=== PATIENT | female | born 1950 | race Caucasian/White ===

== ENCOUNTER 2024-02-19 00:43 | Emergency (ER) | payer MEDICARE, OTHER ==
[~2024-02-19] VITALS: Ht 162.6 cm; Wt 69.9 kg
[2024-02-19] MEDS ORDERED: RABIES IMMUNE GLOBULIN/PF 300 UNIT/ML 2 ML VIAL IM ONE (01:47)
[2024-02-19] MEDS ORDERED: RABIES VACCINE (PCEC)/PF 2.5 UNIT ML IM ONE (01:48)
[2024-02-19] MEDS: RABIES IMMUNE GLOBULIN/PF 300 UNIT/ML 2 ML VIAL IM ONE (02:03)
[2024-02-19] MEDS: RABIES VACCINE (PCEC)/PF 2.5 UNIT ML IM ONE (02:03)
[2024-02-19 02:08] VITALS: BP 145/66; TEMP 98.5; O2SAT 98
== END 2024-02-19 02:08 | disposition home or self-care (01) ==
LOC: ER 01:06
DX: Z23 Encounter for immunization (principal); R03.0 Elevated blood-pressure reading, without diagnosis of hypertension; Z98.890 Other specified postprocedural states; Z88.1 Allergy status to other antibiotic agents
CPT/HCPCS: 90376; A4606; A4663

== ENCOUNTER 2024-02-21 15:46 | Emergency (ER) | payer MEDICARE, OTHER ==
[~2024-02-21] VITALS: Ht 162.6 cm; Wt 69.9 kg
[2024-02-21] MEDS ORDERED: RABIES VACCINE (PCEC)/PF 2.5 UNIT ML IM ONE (16:25)
[2024-02-21] MEDS: RABIES VACCINE (PCEC)/PF 2.5 UNIT ML IM ONE (16:32)
[2024-02-21 16:33] VITALS: BP 132/74; TEMP 98.2; O2SAT 97
== END 2024-02-21 16:34 | disposition home or self-care (01) ==
LOC: ER 15:49
DX: Z23 Encounter for immunization (principal); Z98.890 Other specified postprocedural states; Z88.1 Allergy status to other antibiotic agents
CPT/HCPCS: A4606; A4663

== ENCOUNTER 2024-02-25 14:53 | Emergency (ER) | payer MEDICARE, OTHER ==
[~2024-02-25] VITALS: Ht 162.6 cm; Wt 69.9 kg
[2024-02-25] MEDS ORDERED: RABIES VACCINE (PCEC)/PF 2.5 UNIT ML IM ONE (14:59)
[2024-02-25 15:01] VITALS: O2SAT 99
[2024-02-25] MEDS: RABIES VACCINE (PCEC)/PF 2.5 UNIT ML IM ONE (15:09)
== END 2024-02-25 15:14 | disposition home or self-care (01) ==
LOC: ER 14:53
DX: Z23 Encounter for immunization (principal); Z98.890 Other specified postprocedural states; Z88.1 Allergy status to other antibiotic agents
CPT/HCPCS: A4606; A4663

== ENCOUNTER 2024-03-03 21:40 | Emergency (ER) | payer MEDICARE, OTHER ==
[~2024-03-03] VITALS: Ht 162.6 cm; Wt 68.0 kg
[2024-03-03] MEDS ORDERED: RABIES VACCINE (PCEC)/PF 2.5 UNIT ML IM ONE (22:44)
[2024-03-03] MEDS: RABIES VACCINE (PCEC)/PF 2.5 UNIT ML IM ONE (23:03)
[2024-03-03 23:10] VITALS: BP 129/70; O2SAT 98
== END 2024-03-03 23:05 | disposition home or self-care (01) ==
LOC: ER 21:42
DX: Z23 Encounter for immunization (principal); Z98.890 Other specified postprocedural states; Z88.1 Allergy status to other antibiotic agents
CPT/HCPCS: A4606; A4663